=== PATIENT | female | born 1950 ===

== ENCOUNTER 2019-11-17 14:30 | Inpatient (IN) | payer OTHER ==
[~2019-11-17] VITALS: Ht 167.6 cm; Wt 79.4 kg
[2019-11-18] MEDS ORDERED: SYNTHROID88 MCG PO (09:39)
[2019-11-18] MEDS ORDERED: LOSARTAN-HCTZ1 EAC2 PO (09:39)
[2019-11-18] MEDS ORDERED: VERELAN180 MG PO (09:39)
[2019-11-18] MEDS ORDERED: OMEPRAZOLE MAGN20 MG PO (09:40)
[2019-11-18] MEDS ORDERED: MICROZIDE12.5 MG PO (09:40)
[2019-11-24] MEDS ORDERED: COZAAR100 MG PO (10:52)
[2019-11-24] MEDS ORDERED: HYDROCHLOROTHIA25 MG PO (10:53)
[2019-11-24] MEDS ORDERED: STOOL SOFTENER240 MG PO (10:54)
[2019-11-27] MEDS ORDERED: OXYC1TAB9 PO (12:45)
[2019-11-27] MEDS ORDERED: HYOSCYAMINE0.125 M1 SL (12:45)
[2019-11-27] MEDS ORDERED: INTESTINEX680 M1 PO (12:46)
== END 2019-11-27 13:28 | disposition home or self-care (01) | DRG 331 ==
LOC: SURH 11-24 06:31 → O/R 11-24 06:31 → SURH 11-24 08:45 → O/R 11-24 14:30 → SURH 11-24 14:30
PROVIDERS: ADMIT Surgery
PROC: 0DBP4ZZ Excision of Rectum, Percutaneous Endoscopic Approach (ICD-10-PCS; 2019-11-24)
PROC: 3E0F7GC Introduction of Other Therapeutic Substance into Respiratory Tract, Via Natural or Artificial Opening (ICD-10-PCS; 2019-11-24)
PROC: 4A19X1Z Monitoring of Respiratory Capacity, External Approach (ICD-10-PCS; 2019-11-24)
PROC: 0DBN4ZZ Excision of Sigmoid Colon, Percutaneous Endoscopic Approach (ICD-10-PCS; principal; 2019-11-24 08:45)
DX: K57.30 Diverticulosis of large intestine without perforation or abscess without bleeding (principal); E03.9 Hypothyroidism, unspecified; I11.9 Hypertensive heart disease without heart failure

== ENCOUNTER 2021-05-10 07:15 | Day surgery (SDC) | payer OTHER ==
[~2021-05-10 07:15] MED LIST: COZAAR100 MG PO; HYDROCHLOROTHIA25 MG PO; HYOSCYAMINE0.125 M1 SL; INTESTINEX680 M1 PO; LOSARTAN-HCTZ1 EAC2 PO; MICROZIDE12.5 MG PO; OMEPRAZOLE MAGN20 MG PO; OXYC1TAB9 PO; STOOL SOFTENER240 MG PO; SYNTHROID88 MCG PO; VERELAN180 MG PO
== END 2021-05-10 12:20 | disposition home or self-care (01) ==
LOC: AMB-ENDOS 07:15
PROVIDERS: ATTEND Surgery
DX: K62.89 Other specified diseases of anus and rectum (principal); K64.4 Residual hemorrhoidal skin tags; Z20.822 Contact with and (suspected) exposure to COVID-19